=== PATIENT | male | born 1935 | race Asian ===

== ENCOUNTER 2016-10-19 16:20 | Inpatient (IN) | payer OTHER ==
[~2016-10-19] VITALS: Ht 162.6 cm; Wt 49.0 kg
--- NOTE | 2016-10-19 16:32 | NUR ---
PT RETURNED TO LOBBY PENDING ROOM AVAILABILITY. VSS. RESPS E/U. NO S/S OF DISTRESS NOTED.
--- NOTE | 2016-10-19 17:12 | NUR ---
AMBUKATORY TO BED 7. C/O DIARRHEA OFF AND ON X1 MONTH. PT ALSO C/O GENERALIZED WEAKNESS, PER DAUGHTER PT JUST HAD BLOOD TRANSFUSION OF 2 UNITS @ [facility]. PT ALSO C/O GENERALIZED ABD PAIN, HX LIVER CANCER, DIAGNOSED 1 YEAR AGO.
[2016-10-19] MEDS ORDERED: NORCO1 TA2 PO (17:23)
--- NOTE | 2016-10-19 17:30 | NUR ---
DR. SUMMERS AT BEDSIDE.
--- NOTE | 2016-10-19 18:18 | NUR ---
IV NS BOLUS INFUSING. UNABLE TO TO GIVE URINE SAMPLE AT THIS TIME, URINAL AT BEDSIDE.
[2016-10-19 18:35] LABS: CALCIUM 8.7 mg/dL (8.5-10.1); CARBON DIOXIDE 26.8 mmol/L (21-32); CHLORIDE SERUM 103 mmol/L (98-107); GLUCOSE SERUM 112 mg/dL (74-106); POTASSIUM SERUM 4.2 mmol/L (3.5-5.1); SODIUM SERUM 136 mmol/L (136-145)
[2016-10-19 18:40] LABS: ALBUMIN 2.8 g/dL (3.4-5.0); ALKALINE PHOSPHATASE 150 U/L (46-116); ALT/SGPT 24 U/L (16-63); AST/SGOT 81 U/L (15-37); BILIRUBIN TOTAL 0.7 mg/dL (0.20-1.00); MAGNESIUM 1.7 mg/dL (1.8-2.4)
--- NOTE | 2016-10-19 19:00 | NUR ---
PT AWAKE, ASSISTED TO RESTROOM VIA WHEELCHAIR BY MELISSA WELCH. NO SIGNS OF DISTRESS NOTED.
[2016-10-19 19:02] LABS: PLATELET COUNT 122 x10^3mcL (130-400)
--- NOTE | 2016-10-19 19:08 | NUR ---
REPORT GIVEN TO MI GOTTLIEB SHIFT NURSE.
[2016-10-19 19:46] LABS: UA SPECIFIC GRAVITY >=1.030 (1.005-1.035); microscopic required? YES; urine erythrocyte TRACE (NEGATIVE)
[2016-10-19 19:50] LABS: BAND NEUTROPHIL 3 % (0-10); BASOPHIL 0 % (0-2); MONOCYTE 7 % (0-7); SEGMENTED NEUTROPHILS 88 % (37-75)
[2016-10-19 19:53] LABS: rbc morphology (normal/abnorm) ABNORMAL (NORMAL)
[2016-10-19 19:54] LABS: PLATELET MORPHOLOGY LARGE PLATELET SEEN
--- NOTE | 2016-10-19 20:01 | NUR ---
PT SITTING IN BED, IN POSITION OF COMFORT. PT DENIES ANY PAIN AT THIS TIME. RESPIRATIONS EVEN AND UNLABORED. NO ACUTE DISTRESS NOTED. DAUGHTER AT BEDSIDE. CALL LIGHT WITHIN REACH.
--- NOTE | 2016-10-19 20:14 | NUR ---
REPORT GIVEN TO MO WONG.
[2016-10-19 21:14] VITALS: BP 128/70
--- NOTE | 2016-10-19 21:51 | NUR ---
PATIENT CAME FROM ER AT 2049,PUT IN ROOM 248 B AND MADE COMFORTABLE,ADMISSION CARE GIVEN.DAUGHTER WITH HIM,AMMY,VERY SUPPORTIVE OF CARE.TELE 27 SR/ST.PATIENT CAME IN WITH DIARRHEA,POSSIBLE SEPSIS,LIVER CA. PATIENT ALERT AND ORIENTED,SPEAKS NIGERIAN ONLY.NEEDS ANTICIPATED,DAUGHTER STRETCHER HELPER.DAUGHTER WANTING TO STAY OVER,BUT PATIENT WANT HER TO GO HOME.HEPLOCK LFA,EXTENSION TUBING IN PLACE.IVF NS ORDERED,GIVEN 2 LITERS IN ER,THEN BOLUS HERE.ATB INITIAL DOSE.NO INCIDENT.WILL FOLLOW UP ADMIT ORDER.WILL INITIATE PLAN OF CARE.DR BARKER HERE EARLIER,PATIENT WAS ON TOILET,ASKED IF I COLLECTED STOOL,I SAY IM JUST ADMITTING HIM NOW,WILL COLLECT STOOL THE NEXT TIME HE GOES,CALL LITE IN REACH.
--- NOTE | 2016-10-19 22:00 | NUR ---
HE SAYS HE ALWAYS HAVE THE URGE TO GO BATHOOM.ASSIST PRN.
--- NOTE | 2016-10-19 22:17 | NUR ---
ALL ATB GIVEN,WITH NO INCIDENT.
[2016-10-19 22:26] LABS: FREE T4 0.96 ng/dL (0.76-1.46); FREE THYROXINE INDEX 2.1 ug/dL (1.4-4.5); T3 TOTAL 0.49 ng/mL; T4(THYROXINE) 7.8 ug/dL (4.7-13.3)
--- NOTE | 2016-10-20 02:00 | NUR ---
PATIENT UP IN BSC,HAD FOUL SMELLY LIQUID STOOL,SENT TO LAB ORDERED STOOL C/S AND ETC.KEEP CLEAN AND DRY.PATIENT STAEDY ON HIS FEET.IVF NS AT 150 CC/ HOUR.BACK TO BED BY SELF.CALL LIGHT IN REACH
--- NOTE | 2016-10-20 05:55 | NUR ---
I AND O MEASURED.IV NOW HEPLOCK.IV SITE LFA PATENT AND INTACT.STILL HAVE LOOSE STOOL.FOUL SMELLY ODOR.WILL ENDORSE TO NEXT SHIFT.
[2016-10-20 06:16] VITALS: BP 118/56
[2016-10-20 07:15] LABS: BASOPHIL % 0.1 % (0-2)
[2016-10-20 07:21] LABS: PLATELET COUNT 107 x10^3mcL (130-400); RED CELL DISTRIBUTION WIDTH 21.9 % (11.5-14.5); rbc morphology (normal/abnorm) ABNORMAL (NORMAL)
[2016-10-20 07:24] LABS: CALCIUM 7.9 mg/dL (8.5-10.1); CARBON DIOXIDE 23.7 mmol/L (21-32); CHLORIDE SERUM 106 mmol/L (98-107); CREATININE SERUM 1.5 mg/dL (0.7-1.3); GLUCOSE SERUM 83 mg/dL (74-106); MAGNESIUM 1.6 mg/dL (1.8-2.4); PHOSPHOROUS 3.5 mg/dL (2.5-4.9); POTASSIUM SERUM 4.3 mmol/L (3.5-5.1); SODIUM SERUM 137 mmol/L (136-145)
--- NOTE | 2016-10-20 07:45 | NUR ---
REASSESSMENT DONE. PT AWAKE, COOPERATIVE OF CARE. S1S2 ON AUSCULTATION, TELE27. +2 PITTING EDEMA TO BLE. DENIES CP, SOB, ABD PAIN. LUNG SOUNDS CLEAR THROUGHOUT. PT HAVING DIARRHEA, ABD SOFT,FLAT BOWEL SOUNDS PRESENT. VOIDS WITHOUT DISCOMFORT. PORT A CATH ACCESS TO RIGHT CHEST. IV PATENT TO LEFT UPPER ARM. BED IN LOWEST POSITION, CALL LIGHT WITHIN REACH. WILL CONTINUE TO MONITOR.
[2016-10-20 09:32] VITALS: BP 121/66
[2016-10-20 10:44] VITALS: Ht 162.6 cm; Wt 49.0 kg
--- NOTE | 2016-10-20 12:25 | NUR ---
Initial assessment Dx: Dehydration, liver CA (on chemotherapy) PMHx: Chronic hepatitis B infection PSHx: Blood transfusion Labs: Creat:1.5 H, Alb: 2.8 L, A1C: 5.3 Meds: Colace BID stop 11/19, norco, vancomysin Diet: NPO d/t abdominal pain with Diarrhea, Regular diet for lunch PO Intake: N/A Ht: 64 in Wt: 49 Kg BMI: 18.5 IBW: 130 lbs %IBW: 82% UBW: 105 lbs Age: 81 YO Food Allergies: Seafood, beef, egg, milk, and turkey Skin: Jacoby Edema: None GI: +BM 10/19 w/ D Problem with: N: None V: None D: Positive in the past 48 hours C: None Problems with: Chewing: None Swallowing: None Current appetite: Good per pt and RN Recent wt change: None %wt change: N/A Vitamin/Supplement use: None Special diet at home: Pt states only eats chicken or pork Physical activity: None Education: Medical nutrition therapy for cancer Estimated Nutritional Needs Based on body weight 49 kg Energy: 6615-6917 kcal/d (1086 x1.1 x 1.2-1.5) Protein: 59-74 g/d (1.2-1.5g/kg) Fluid: 1712-6038 ml/d (1 ml/kcal) or per doctor Nutrition Diagnosis 1. Increased nutrient needs related to catabolic medical condition/procedure as evidenced by CA and chemotherapy 2. Altered GI function related to medication (antibiotics) as evidenced by diarrea x2 days Intervention 1. Continue regular diet 2. Recommend boost plus BID (Chocolate and/or vanilla) Monitor/Evaluate Goal: PO intake at least 75% of estimated needs Monitor: PO intake, Labs, GI function F/U in 2-3 days as risk
--- NOTE | 2016-10-20 12:30 | NUR ---
Intervention 1. Recommend boost plus BID (Chocolate and/or vanilla) 2. Continue regular diet, aknowledge food preferences (Chicken and pork, no cold beverages)
--- NOTE | 2016-10-20 12:35 | NUR ---
PASSED [place]. PT TOLERATED WELL. NO DISTRESS NOTED. PROVIDED PT WITH WARM BLANKET PER PT REQUEST. NO DISCOMFORT REPORTED. CALL LIGHT WITHIN REACH.
[2016-10-20 13:01] VITALS: BP 98/59
--- NOTE | 2016-10-20 13:10 | NUR ---
ASSISTED PT UP TO CHAIR FOR LUNCH. PT NEED MINIMAL ASSIST WHEN TRANSFERRING. FEEDS SELF. CALL LIGHT WITHIN REACH.
--- NOTE | 2016-10-20 16:30 | NUR ---
PT IN LOW FOWLERS. SLEEPING AT MOMENT. EFFORTLESS BREATHING, BED IN LOWEST POSITION, CALL LIGHT WITHIN REACH.
[2016-10-20 17:13] VITALS: BP 114/61
--- NOTE | 2016-10-20 18:40 | NUR ---
PT EATING DINNER AT BEDSIDE CHAIR. TOLERATING DIET WELL. DAUGHTER AT BEDSIDE. PT DAUGHTER EXPRESSED WISHES TO BRING BRIEFS FOR PT. EXPLAINED BRIEF FREE PROTOCOL. PT AND DAUGHTER INSISTED TO UTILIZE BRIEFS. BRIEFS IN USE FOR PRECAUTIONS PURPOSES. PT CONTINENT.
--- NOTE | 2016-10-20 20:45 | NUR ---
REASSESSMENT DONE. PT AWAKE. COOPERATIVE OF CARE. DENIES CP, SOB, ABD PAIN. PT HAVING DIARRHEA, ON CONTACT ISOLATION FOR C-DIFF IN STOOL. PT ON ABX THERAPY. EDEMA +2 TO BLE. +2 PULSES TO ALL EXTREMITIES. PORT A CATH ACCESS TO RIGHT UPPER CHEST. IV ACCESS TO LUP 20GAUGE IN PLACE. PATENT. HEP LOCKED AT MOMENT. BED IN LOWEST POSITION, CALL LIGHT WITHIN REACH.
--- NOTE | 2016-10-20 21:00 | NUR ---
RESUMED CARE OF PT FROM [facility]. PT IS RESTING IN BED. FINNISH. AMBULATES WITH ASSISTANCE. STILL GETTING VANCO PO FOR C-DIFF. C-DIFF ISOLATION OBSERVED. HEPLOCK IV LEFT UPPER ARM. PATENT AND INTACT. USING BEDSIDE COMMODE WITH ASSISTANCE. WILL MONITOR. DENIES ANY PAIN OR DISCOMFORT.
[2016-10-20 21:25] VITALS: BP 111/50
--- NOTE | 2016-10-21 00:23 | NUR ---
VANCOMYCIN 125 MG PO WAS ADMINISTERED FOR C-DIFF. GOOD HANDWASHING TECHNIQUE OBSERVED.
--- NOTE | 2016-10-21 05:13 | NUR ---
PT IS RESTING. AMBULATED TO THE BATHROOM. MADE COMFORTABLE IN BED. PT IS RECEIVING VANCOMYCIN PO FOR + C-DIFF. NO ADVERSE REACTION NOTED. MADE COMFORTABLE IN BED. WILL MONITOR.
[2016-10-21 05:19] VITALS: BP 104/58
--- NOTE | 2016-10-21 07:23 | NUR ---
RECEIVED AWAKE, ALERT AND ORIENTED. SITTING ON A CHAIR WATCHING TV. NO RESP. DISTRESS NOTED. NO C/O PAIN OR DISCOMFORT. HL PATENT.CALL LIGHT WITHIN REACH. WILL CONTINUE W/PLAN OF CARE.
--- NOTE | 2016-10-21 08:45 | NUR ---
AM ROUNDS DONE BY DR. BHARDWAJ AND MEDICAL TEAM. PLAN TO CONT. WITH CURRENT TX. PT/FAMILY AGREED WITH PLAN.
[2016-10-21 09:20] VITALS: BP 148/82
[2016-10-21 09:49] LABS: BASOPHIL % 0.1 % (0-2); PLATELET COUNT 133 x10^3mcL (130-400)
[2016-10-21 09:54] LABS: RED CELL DISTRIBUTION WIDTH 22.2 % (11.5-14.5)
[2016-10-21 10:04] LABS: CALCIUM 8.3 mg/dL (8.5-10.1); CARBON DIOXIDE 24.3 mmol/L (21-32); CHLORIDE SERUM 105 mmol/L (98-107); CREATININE SERUM 1.3 mg/dL (0.7-1.3); GLUCOSE SERUM 100 mg/dL (74-106); PHOSPHOROUS 2.7 mg/dL (2.5-4.9); POTASSIUM SERUM 4.2 mmol/L (3.5-5.1); SODIUM SERUM 137 mmol/L (136-145)
[2016-10-21 12:30] VITALS: BP 133/57
--- NOTE | 2016-10-21 13:01 | NUR ---
TOLERATED WELL WITH MEALS. NO C/O N/V. NO ABD. DISCOMFORT.
--- NOTE | 2016-10-21 15:42 | NUR ---
PT RESTING IN BED, NO ACUTE DISTRESS NOTED. STATED STILL HAVING LOOSE STOOL. CAER ENDORSED TO [place].PT DENIES PAIN OR DISCOMFORT.
--- NOTE | 2016-10-21 15:45 | NUR ---
ASSUMED PT CARE FOR THIS PT. REC PT 0X4, NO SOB AT RM AIR, DENIES PAIN, ON CONTACT ISOLATION PRECAUTION FOR C. DIFF, SL ON THE LUE. WILL CONTNIUE TO MONITOR STATUS.
[2016-10-21 17:50] VITALS: BP 139/69
--- NOTE | 2016-10-21 18:00 | NUR ---
DAUGHTER IN THE ROOM AND ASK TO SPEAK WITH MD. DR. REDDY MADE AWARE. PT SITTING ON THE CHAIR; NO COMPLAINTS VOICED. REPORTS THAT HE HAD LOOSE STOOLS X4 THIS SHIFT BUT STATES THE BLACKISH COLOR IS GONE AND NOW WITH "MUCOUS/WHITE COLOR". WILL CONTINUE TO MONITOR STATUS.
--- NOTE | 2016-10-21 19:30 | NUR ---
PT IS ALERT AND ORIENTED. PLEASANT AND COOPERATIVE. OCCITAN SPEAKING. CLEAR LUNG SOUNDS ON AUSCULTATIONS BILATERALLY UPPER AND LOWER BASES. GENERALIZED WEAKNESS. HEPLOCK. PT STILL HAS VANCO PO FOR C-DIFF+. AND FLAGYL PO. WITH BATHROOM PRIVILEGES. AMBULATES WITH MINIMAL ASSIST. MADE COMFORTABLE IN BED. CALL LIGHT WITHIN EASY REACH.
[2016-10-21 21:42] VITALS: BP 112/50
[2016-10-22 05:09] VITALS: BP 121/70
--- NOTE | 2016-10-22 05:29 | NUR ---
PT IS RESTING WELL. DENIES ANY PAIN OR DISCOMFORT. MADE COMFORTABLE IN BED. CALL LIGHT WITHIN EASY REACH.
[2016-10-22 06:56] LABS: BASOPHIL % 0.4 % (0-2)
[2016-10-22 07:07] LABS: CHLORIDE SERUM 108 mmol/L (98-107); CREATININE SERUM 1.1 mg/dL (0.7-1.3); GLUCOSE SERUM 101 mg/dL (74-106); MAGNESIUM 1.8 mg/dL (1.8-2.4); PHOSPHOROUS 2.6 mg/dL (2.5-4.9); SODIUM SERUM 139 mmol/L (136-145)
--- NOTE | 2016-10-22 07:10 | NUR ---
REASSESSMENT DONE. PT AWAKE, COOPERATIVE OF CARE. ABLE TO LET NEEDS KNOWN. S1S2 ON AUSCULTATION. +1 EDEMA TO BLE. +2 PULSES TO ALL EXTREMITIES. NON TENTING SKIN TURGOR. PT STATES STILL HAVING LOOSE STOOLS. IV HEP LOCKED TO DMITRY. CALL LIGHT WITHIN REACH. WILL CONTINUE TO MONITOR.
--- NOTE | 2016-10-22 07:11 | NUR ---
ABDOMEN SLIGHTLY FIRM, DENIES ABD PAIN, NAUSEA VOMITING. ACTIVE BOWEL SOUNDS TO ALL QUADRANTS.
[2016-10-22 07:14] LABS: PLATELET COUNT 119 x10^3mcL (130-400); RED CELL DISTRIBUTION WIDTH 21.9 % (11.5-14.5)
[2016-10-22 08:42] VITALS: BP 118/68
[2016-10-22 10:21] VITALS: BP 124/64
[2016-10-22 12:04] VITALS: BP 116/56
--- NOTE | 2016-10-22 12:40 | NUR ---
PASSED [place]. PT TOLERATED WELL. PT SITTING AT BEDSIDE CHAIR. WATCHING TV. NO DISTRESS NOTED. CALL LIGHT WITHIN REACH.
--- NOTE | 2016-10-22 18:10 | NUR ---
PT AMBULATED INSIDE ROOM. OUT OF BED FOR EVERY MEAL. DENIES ANY PAIN AT MOMENT. NO DISTRESS. CALL LIGHT WITHIN REACH.
--- NOTE | 2016-10-22 20:00 | NUR ---
RECEIVED PT IN BED, RESTING QUIETLY. RESP. EVEN AND UNLABORED. ON ROOM AIR, NO DISTRESS NOTED. AFEBRILE AND VITAL SIGNS STABLE. SR ON THE MONITOR. DENIES CHEST PAIN OR PRESSURE. ABD. SOFT, NON DISTENDED, BS ACTIVE, NO N/V NOTED. DENIES PAIN OR ANY DISCOMFORT. HL TO DMITRY, INTACT AND PATENT. AMBULATORY. VOIDING FREELY. ASSISTED WITH HS CARE. CALL LIGHT WITHIN REACH. WILL CONTINUE TO MONITOR.
[2016-10-22 22:13] VITALS: BP 123/71
--- NOTE | 2016-10-23 04:40 | NUR ---
ASLEEP. NO DISTRESS NOTED. WILL CONTINUE TO MONITOR.
[2016-10-23 06:12] VITALS: BP 134/69
[2016-10-23 06:29] LABS: PLATELET COUNT 143 x10^3mcL (130-400)
--- NOTE | 2016-10-23 06:40 | NUR ---
SLEPT WELL. NO COMPLAINTS NOTED. NO SIGNIFICANT CHANGE NOTED. AFEBRILE AND VITAL SIGNS STABLE. KEPT COMFORTABLE. DENIES PAIN OR ANY DISCOMFORT. WILL ENDORSE TO INCOMING NURSE.
--- NOTE | 2016-10-23 07:30 | NUR ---
PATIENT IS SITTING UP IN CHAIR AT BEDSIDE. ALERT ORIENTED, ABLE TO VERBALIZE NEEDS WELL. PATIENT IS IN CONTACT ISOLATION FOR C-DIFF STOOL. HL PATENT LEFT UPPER ARM. WILBER CATH NOTED ON RT CHEST WALL, PLACED LAST WEEK AT [facility] PER PT. TELE 27 NSR. AMBULATES WITH SLOW STEADY GAIT TO THE BATHROOM PRN. SCD'S IN PLACE. LUNGS CLEAR ON ROOM AIR. NO EDEMA NOTED. PATIENT HAD FARMED BM THIS AM. DENIES ANY PAIN OR DISCOMFORT AT THIS TIME. WILL CONTINUE TO [facility].
[2016-10-23 07:45] LABS: RED CELL DISTRIBUTION WIDTH 22.2 % (11.5-14.5)
--- NOTE | 2016-10-23 08:20 | NUR ---
DR PARKS AND MEDICAL TEAM INTO SEE PATIENT AND DISCUSS PLAN OF CARE TO INCLUDE D/C HOME THIS AFTERNOON.
[2016-10-23 09:35] VITALS: BP 121/52
[2016-10-23 11:07] LABS: ATYPICAL LYMPH 1 %; BAND NEUTROPHIL 3 % (0-10); BASOPHIL 0 % (0-2); MONOCYTE 16 % (0-7); SEGMENTED NEUTROPHILS 56 % (37-75); rbc morphology (normal/abnorm) ABNORMAL (NORMAL)
[2016-10-23 11:09] LABS: PLATELET MORPHOLOGY PLATELETS DECREASED
[2016-10-23] MEDS ORDERED: VANCOCIN125 MG PO (13:24)
[2016-10-23] MEDS ORDERED: FLA500 PO (13:26)
[2016-10-23 14:59] VITALS: BP 121/52
--- NOTE | 2016-10-23 15:24 | NUR ---
PATIENT READY FOR D/C HOME. HL AND TELE DC'D. PRESCIPTIONS GIVEN PERSONAL BELONGINGS LIST SIGNED. DR DONNELLY REMOVED SUTURES AT [facility] SITE PRIOR TO D/C HOME. DISCHARGE INSTRUCTIONS GIVEN. CONDITON APPEARS STABLE.
--- NOTE | 2016-10-23 16:43 | NUR ---
P.T. NOTES/INITIAL EVAL [id number] Pt WAS ADMITTED DUE TO POSS SEPSIS, DEHYDRATION; Pt LIVES ALONE IN [address] [address], HAS 5 STEPS TO FRONT ENTRY; AMBULATORY WITHOUT ASST DEVICE; DOES NOT DRIVE; RETIRED [employer] IN [place]; WAS IN SENIOR CARE (COMMU- NIST RULE); DAUGHTER LIVES CLOSEBY (WORKS DAYTIME). S:Pt WAS SEEN AWAKE & ALERT IN BED, SPEAKS ALBANIAN/WELSH; ORIENTED x3, ABLE TO FOLLOW COMMANDS, AGREEABLE & COOPERATIVE W/ P.T., NO C/O PAIN OR DIZZINESS AT THIS TIME; CONTACT ISOL PREC OBSERVED. O:BED MOBILITY: INDEP IN SUPINE TO SIT TRANSFERS: SBA IN SIT TO STAND GAIT: SBA WITHOUT ASST DEVICE X 72 FT SIT TO STAND TEST X 5 REPS=46 sec (NORMAL=14.8 sec) Pt AGREED TO SIT UP IN CHAIR AT BEDSIDE, CALL ROGERS, PHONE, TABLE IN REACH; APPRECIATIVE; DAUGHTER CAME IN, SUPPORTIVE. A:Pt DEMO GOOD RESPONSE TO P.T. SESSION; NO NOTED LOSS OF BALANCE AT THIS TIME; Pt EDUC ON SAFE GAIT, HEP, USE OF CALL LIGHT FOR NURSE ASSIST, DEMO UNDERSTANDING, GOOD FOLLOW THRU; HW=293/57, HR=66, O2 SAT ROOM AIR=96%; C DIFF, LIVER CA. P:CONT PT ONCE DAILY 6X/WK X 1 WK; POC & DX DISCUSSED W/ SUPPORT [place]; WILL BENEFIT W/ P.T. DURING ACUTE STAY, STRENGTHENING EXER, STAIR TRNG. EVAL24 GCODES:[id number] [facility] REACH SCORE:24 inches [id number] Pt WAS GIVEN THERA EXER UE/LE DUSTIN; CONT PT EX8
== END 2016-10-23 15:25 | disposition home health service (06) | DRG 871 ==
LOC: ED 16:20 → DU 19:30
PROVIDERS: Emergency Medicine; Family Medicine; ADMIT Family Medicine
DX: A41.4 Sepsis due to anaerobes (principal); N17.0 Acute kidney failure with tubular necrosis; A04.7 Enterocolitis due to Clostridium difficile; B18.1 Chronic viral hepatitis B without delta-agent; E44.0 Moderate protein-calorie malnutrition; E87.2 Acidosis; Z68.1 Body mass index [BMI] 19.9 or less, adult; C22.0 Liver cell carcinoma; I42.9 Cardiomyopathy, unspecified; R65.20 Severe sepsis without septic shock; E86.0 Dehydration; E83.42 Hypomagnesemia; M19.90 Unspecified osteoarthritis, unspecified site; D69.59 Other secondary thrombocytopenia
CPT/HCPCS: 83880; 84439; 87046; 87046-59; 97110-GP; J1956; J3475; J3490; J7030; J7040; Q0092